=== PATIENT | female | born 1935 | race Caucasian/White ===

== ENCOUNTER 2023-08-23 15:31 | Outpatient (CLI) | payer MEDICARE, SELFPAY ==
--- NOTE | 2023-08-23 15:44 | US_ITS ---
PROCEDURE: US TRANSVAGINAL CLINICAL INDICATION: post menopausal bleeding COMPARISON: No exams were available for comparison FINDINGS: Transvaginal sonographic images of the pelvis were obtained. UTERUS: 4.4cm x 3.1cmx 1.8 cm anteverted with a combined endometrial thickness of 4mm. LEFT OVARY: Not visualized RIGHT OVARY: Not visualized Both ovaries are not seen today. There is no fluid in the cul-de-sac. IMPRESSION: 1. Small anteverted, atrophic appearing uterus. 2. The endometrium is thin. 3. Ovaries were not visualized today likely secondary to atrophy. 4. No fluid in the cul-de-sac Dictated by: Tin Ladd MD 08/23/2023 16:54 Tin Ladd MD in [facility] 08/23/2023 16:54
== END 2023-08-23 23:59 | disposition home or self-care (01) ==
PROVIDERS: PCP Internal Medicine Addiction Medicine; Visit Provider Nurse Practitioner Obstetrics & Gynecology
DX: N93.9 Abnormal uterine and vaginal bleeding, unspecified (principal); N95.0 Postmenopausal bleeding
CPT/HCPCS: 76830